=== PATIENT | male | born 1990 | race Caucasian/White ===

== ENCOUNTER 2016-10-30 07:29 | Emergency (ER) | payer OTHER ==
[2016-10-30] MEDS ORDERED: Acetaminophen TAB* 325 MG PO ONE (08:00)
--- NOTE | 2016-10-30 08:34 | RAD ---
Indication: Cough, fever. 2 views of the chest including dual energy PA views demonstrate no mediastinal shift. Heart is of normal size and configuration. Lung gonzalez appear clear. Motion artifact is noted. IMPRESSION: No active cardiopulmonary disease is noted.
[2016-10-30 09:13] VITALS: BP 148/79
--- NOTE | 2016-10-30 18:21 | ED ---
Blaise Pruitt Billy, scribed for Christoph Kelley MD on 10/30/16 at 0838 . Influenza-Like Illness - HPI Summary HPI Summary: Patient is a 26 y/o male who presents to [facility] with constant flu-like symptoms for 2 days. He reports a fever (104F), productive cough with yellow sputum, and sore throat. Fever was improved with Tylenol. Denies recent flu vaccination. - History of Current Complaint Chief Complaint: EDFever Time Seen by Provider: 10/30/16 07:49 Hx Obtained From: Patient Onset/Duration: Gradual Onset, Lasting Days, Still Present Severity: Moderate Associated Signs & Symptoms: Fever, T Max - 104F, Cough - Productive., Sore Throat - Allergy/Home Medications Allergies/Adverse Reactions: Allergies Allergy/AdvReac Type Severity Reaction Status Date / Time No Known Allergies Allergy Verified 10/30/16 07:37 PMH/Surg Hx/FS Hx/Imm Hx Cardiovascular History: Denies: Hx Coronary Artery Disease Respiratory History: Reports: Other Respiratory Problems/Disorders - Acute bronchitis. Psychiatric History: Reports: Hx Depression Infectious Disease History: No Infectious Disease History: Denies: Traveled Outside the [place] in Last 30 Days - Family History Known Family History: Positive: Diabetes - Mother. Negative: Cardiac Disease, Hypertension - Social History Alcohol Use: None Substance Use Type: Reports: None Smoking Status (MU): Light Every Day Tobacco Smoker Review of Systems Positive: Fever Positive: Sore Throat Positive: Cough - Productive with yellow sputum. All Other Systems Reviewed And Are Negative: Yes Physical Exam Triage Information Reviewed: Yes Vital Signs On Initial Exam: Initial Vitals Temp Pulse Resp BP Pulse Ox 103.2 F 103 16 166/86 100 10/30/16 07:30 10/30/16 07:30 10/30/16 07:30 10/30/16 07:30 10/30/16 07:30 Vital Signs Reviewed: Yes Appearance: Positive: Well-Appearing, No Pain Distress, Obese Skin: Positive: Warm, Skin Color Reflects Adequate Perfusion, Dry Head/Face: Positive: Normal Head/Face Inspection Eyes: Positive: Normal ENT: Positive: Pharyngeal erythema, Nasal congestion Neck: Positive: Supple, Nontender, No Lymphadenopathy Respiratory/Lung Sounds: Positive: Clear to Auscultation, Breath Sounds Present Cardiovascular: Positive: RRR Abdomen Description: Positive: Nontender, Soft Bowel Sounds: Positive: Present Musculoskeletal: Positive: Normal Neurological: Positive: Normal Psychiatric: Positive: Normal - [place] Coma Scale Coma Scale Total: 15 Diagnostics - Vital Signs Vital Signs Temp Pulse Resp BP Pulse Ox 10/30/16 08:23 97 90 10/30/16 08:21 141/77 10/30/16 08:02 103 F 100 20 164/84 100 10/30/16 07:30 103.2 F 103 16 166/86 100 - Laboratory Lab Results: Lab Results 10/30/16 Range/Units 08:41 Influenza A (Rapid) Positive H (Negative) Influenza B (Rapid) Negative (Negative) Lab Statement: Any lab studies that have been ordered have been reviewed, and results considered in the medical decision making process. - Radiology CXR Radiology Interpretation Completed By: Radiologist - IMPRESSION: No active cardiopulmonary disease is noted. Flu Symptom Course/Dx - Course Course Of Treatment: Mr. Mccormick presented with classic flu symptoms and his Influenza A swab was positive. He has had only one day of symptoms so I treated him with TamiFlu. - Diagnoses Provider Diagnoses: Influenza Discharge - Discharge Plan Condition: Stable Disposition: HOME Prescriptions: Oseltamivir CAP* [Tamiflu CAP*] 75 mg PO BID #10 cap Patient Education Materials: Influenza (ED) Forms: *Work Release Referrals: [facility] [Outside] The documentation as recorded by the Blaise arguello Billy accurately reflects the service I personally performed and the decisions made by me, Christoph Kelley MD.
== END 2016-10-30 09:25 | disposition home or self-care (01) ==
LOC: ED 07:29
DX: J11.1 Influenza due to unidentified influenza virus with other respiratory manifestations (principal); R50.9 Fever, unspecified; R05 Cough; J02.9 Acute pharyngitis, unspecified
CPT/HCPCS: 71020; 87502; 99283; A9270-GY